=== PATIENT | female | born 1955 | race Caucasian/White ===

== ENCOUNTER 2025-02-08 09:12 | Day surgery (SDC) | payer MEDICARE, OTHER ==
[2025-02-08] MEDS ORDERED: XYLOCAINE 1% HCL 20 ML MDV IJ ONE (09:13)
[2025-02-08] MEDS ORDERED: propofoL IV ONE (11:10)
[2025-02-08] MEDS ORDERED: Lactated Ringers 1,000 ML IV ONE (11:48)
--- NOTE | 2025-02-08 13:26 | XRAY ---
Indication: Left C2-C4 MBB. Intraoperative fluoroscopy provided for 7 seconds. 2 digital spot images submitted for interpretation demonstrates posterior needle tips projecting over expected left C2-C4 nerve roots. Correlate with intraoperative findings/report.
--- NOTE | 2025-02-08 13:34 | XRAY ---
7 seconds of fluoroscopy was used in surgery for a left C2-C4 MBB.
== END 2025-02-08 11:47 | disposition home or self-care (01) ==
LOC: SDC-PAIN 09:12
PROVIDERS: ATTEND Psychiatry & Neurology Pain Medicine
DX: M47.812 Spondylosis without myelopathy or radiculopathy, cervical region (principal); E11.9 Type 2 diabetes mellitus without complications